=== PATIENT | male | born 2000 | race Caucasian/White ===

== ENCOUNTER 2024-04-24 03:37 | Emergency (ER) | payer BC ==
[2024-04-24 03:46] VITALS: BP 139/84; PULSE 90; RESP 20; TEMP 97.9; BMI 29.1
[2024-04-24] MEDS ORDERED: ALPRAZolam 0.25 MG TABLET ONE (03:54)
[2024-04-24] MEDS: ALPRAZolam 0.25 MG TABLET PO PRN (03:55)
== END 2024-04-24 04:33 | disposition home or self-care (01) ==
LOC: FER 03:37
DX: F41.9 Anxiety disorder, unspecified (principal)
CPT/HCPCS: 99283-25